=== PATIENT | male | born 2000 | race Caucasian/White ===

== ENCOUNTER 2022-03-04 02:10 | Emergency (ER) | payer BC | END 2022-03-04 06:54 | disposition home or self-care (01) | LOC: JD.ED 02:10 | DX: R06.02 Shortness of breath (principal) | CPT/HCPCS: 36415; 80053; 83735; 84443; 85025; 85379; 93005; 93010; 99283; 99283-25 ==

== ENCOUNTER 2023-07-22 09:41 | Emergency (ER) | payer BC | END 2023-07-22 12:03 | disposition home or self-care (01) | LOC: JD.ED 09:41 | DX: F41.9 Anxiety disorder, unspecified (principal) | CPT/HCPCS: 99283 ==